=== PATIENT | female | born 1970 | race Caucasian/White ===

== ENCOUNTER 2024-04-05 18:58 | Emergency (ER) | payer MEDICARE ==
[~2024-04-05 18:58] MED LIST: Aspirin Chewable 81 MG TAB ONE; Nitroglycerin 2% Ointment 1 INCH/1 GM Packet ONE
== END 2024-04-05 19:38 | disposition left against medical advice (07) ==
LOC: ERS 18:58
DX: Z53.21 Procedure and treatment not carried out due to patient leaving prior to being seen by health care provider (principal)
CPT/HCPCS: 93005